=== PATIENT | female | born 1935 | race Caucasian/White ===

== ENCOUNTER 2019-02-08 15:51 | Inpatient (IN) ==
[2019-02-08 17:12] LABS: Basophils % 0.5 % (0.1-2.0); Eosinophils # 0.1 K/mm3 (0.0-0.4); Eosinophils % 1.4 % (0.1-12.0); Hematocrit 37.1 % (37.0-47.0); Hemoglobin 11.9 g/dL (12.2-16.2); Lymphocytes # 1.3 K/mm3 (0.7-4.5); Lymphocytes % 18.3 % (10-50); Mean Corpuscular HGB Conc 32.1 g/dL (31.8-35.4); Mean Corpuscular Hemoglobin 30.8 pg (27.0-31.2); Mean Corpuscular Volume 96.1 fl (81-99); Mean Platelet Volume 8.9 fl (7.4-10.4); Monocytes # 0.4 K/mm3 (0.1-1.0); Monocytes % 5.5 % (1.7-9.3); Neutrophils # 5.4 K/mm3 (1.8-7.8); Neutrophils % 74.3 % (37.0-80.0); Platelet Count 216 K/mm3 (142-424); Red Blood Count 3.86 M/mm3 (4.20-5.40); Red Cell Distribution Width 15.1 % (11.5-17.5); White Blood Count 7.3 K/mm3 (4.8-10.8)
--- NOTE | 2019-02-08 17:34 | Emergency Department Note ---
[facility] [place] Disposition Clinical Impression: Acute renal failure (ARF) Qualifiers: Acute renal failure type: unspecified Qualified Code(s): N17.9 - Acute kidney failure, unspecified Disposition: Still a Patient Condition on Discharge: Serious Referrals: Provider,Referral, [Primary Care Provider] - Time of Disposition: 18:45 Medical Decision Making - Jeramy Inquiry Pt receiving controlled substance: No Vital Signs: 02/08/19 16:14 Temperature 97.7 F Temperature Source Oral Pulse Rate [Right Brachial] 49 L Respiratory Rate 18 Blood Pressure [Right Arm] 115/51 L Blood Pressure Mean [Right Arm] 72 Blood Pressure Source [Right Arm] Automatic Cuff Blood Pressure Position [Right Arm] Sitting 02 Sat by Pulse Oximetry 94 L Oxygen Delivery Method Room Air - Lab Data Lab results reviewed: Yes: I reviewed the patient's lab results. Lab Results 02/08/19 16:14: Urine Color Yellow, Urine Appearance Cloudy, Urine pH 5.0, Ur Specific [place] 1.020, Urine Protein Negative, Urine Glucose (UA) Negative, Urine Ketones Trace, Urine Blood Negative, Urine Nitrate Negative, Urine Bilirubin 1+ A, Urine Urobilinogen 1, Ur Leukocyte Esterase 1+ A 02/08/19 16:55: WBC 7.3, RBC 3.86 L, Hgb 11.9 L, Hct 37.1, MCV 96.1, MCH 30.8, MCHC 32.1, RDW 15.1, Plt Count 216, MPV 8.9, Neut % (Auto) 74.3, Lymph % (Auto) 18.3, [place] % (Auto) 5.5, Eos % (Auto) 1.4, Baso % (Auto) 0.5, Neut # (Auto) 5.4, Lymph # (Auto) 1.3, [place] # (Auto) 0.4, Eos # (Auto) 0.1, Baso # (Auto) 0.0 02/08/19 16:55: Sodium 136, Potassium 3.8, Chloride 102, Carbon Dioxide 23, Anion Gap 14.8, BUN 49 H, Creatinine 3.11 H, Estimated Creat Clear 20, Estimated GFR 14 L*, Est GFR ( Amer) 17 L*, Glucose 102, Calcium 8.9, Total Bilirubin 0.6, AST 101 H, ALT 117 H, Alkaline Phosphatase 104, Total Protein 7.0, Albumin 3.4, Globulin 3.6 H, Albumin/Globulin Ratio 0.9 L, Amylase 50, Lipase 146 Result diagrams: 02/08/19 16:55 02/08/19 16:55 Orders (Tests/Meds): ED MEDICATIONS Generic Name Dose Route Start Last Admin Trade Name Freq PRN Reason Stop Dose Admin Sodium Chloride 1,000 mls @ 999 mls/hr 02/08/19 16:45 02/08/19 16:59 Sod Chlor 0.9% 1000ml Bag IV 02/08/19 17:45 999 mls/hr .Q1H1M DORA Administration Discontinued Medications Generic Name Dose Route Start Last Admin Trade Name Freq PRN Reason Stop Dose Admin Ondansetron HCl 4 mg 02/08/19 16:44 02/08/19 16:59 Zofran 4mg/2ml Vial IV 02/08/19 16:45 4 mg ONCE ONE Administration ORDERS Category Date Time Status Diarrhea 23 Panel, PCR Stat Lab 02/08/19 16:43 Ordered Medical Decision Narrative: Spoke with Navneet at [facility] in [place], [place]. Creatinine on Monday02/06/19 was 1.3 and eGFR was 48. Patient was transferred to ER after discussing with Dr Franks [facility] [place] HPI - General Stated complaint: Vomiting;weakness Time Seen by Provider: 02/08/19 16:30 Mode of Arrival: Family Vehicle Source of Information: Patient Limitations: No Limitations Description of Symptoms (Recalled from Triage Doc. by RN): C/O VOMITING AND DIARRHEA SINCE 1AM MONDAY AND WEAKNESS. UNABLE TO EAT HEENT Symptoms (Recalled from RN notes): No Resp Symptoms (Recalled from RN notes): No Skin Symptoms (Recalled from RN notes): No MS Symptoms (Recalled from RN notes): No Functional Status (Recalled from RN notes): N/A - History of Present Illness Provider Complaint: Patient is visiting daughter from out of town. States she ate sausage for dinner on 02/04/19. Woke up in the middle of the night with vomiting, diarrhea and stomach cramps. Took some Imodium. The next day she was evaluated at the hospital in [place]. Had labs, a CT and an EKG. She also got IV fluids. Was told these were all okay and was sent home. [place] mostly okay yesterday, and traveled to her daughter's house here. Didn't eat anything yesterday and had no vomiting or diarrhea. Ate toast this am, has had nausea, vomiting and diarrhea again. Has history of CHF. History of left breast cancer. History stage III renal failure. History of AMI X 2. History of HTN. States she has chronic bradycardia, and heart rate of 49 today is normal for her. Onset (ago): day(s) (4) Location: abdomen Relieving factors: none Exacerbating factors: none Associated symptoms: nausea/vomiting Treatments prior to arrival: other (Imodium) - Related Data Home Medications Medication Instructions Recorded Confirmed Allopurinol [Allopurinol 100mg 100 mg PO DAILY 02/08/19 02/08/19 tablet] Aspirin [Aspir 81] 81 mg PO DAILY 02/08/19 02/08/19 Calcium Carbonate/Vitamin D3 1 each PO DAILY 02/08/19 02/08/19 [Os-Magno 500-Vit D3 600 Caplet] Carvedilol [Carvedilol 3.125mg Tab] 3.125 mg PO BID 02/08/19 02/08/19 Furosemide [Furosemide 40MG tAB] 20 mg PO DAILY 02/08/19 02/08/19 Losartan Potassium 50 mg PO DAILY 02/08/19 02/08/19 Mv-Min/FA/Vit K/Lycop/Lut/Zeax 1 each PO DAILY 02/08/19 02/08/19 [Ocuvite Eye + Multi Tablet] Simvastatin 40 mg PO DAILY 02/08/19 02/08/19 Tamoxifen Citrate 20 mg PO DAILY 02/08/19 02/08/19 Allergies Allergy/AdvReac Type Severity Reaction Status Date / Time No Known Allergies Allergy Verified 02/08/19 16:19 - Worker's Comp Is this a Worker's Comp case?: No [facility] History - Hepatitis A Screen Drug use history?: No High risk sexual behaviors?: No History of sexually transmitted infection?: No Currently employed?: No Childcare worker?: No Do you have indoor plumbing?: Yes Do you have electricity?: Yes Attestation statement:: This patient has been screened for Hepatitis A risk factors. I have reviewed the patient's past medical history: Yes Medical History: Reports:: Cancer (LEFT BREAST), Congestive Heart Failure, Coronary Artery Disease, Renal Insufficiency - Social History Alcohol Intake: never Occupational Status: retired - Psychiatric History Expresses thoughts of harming self/others: None Suicide Plan Description: No Plan ROS Obtained: Yes All systems reviewed & no additional complaints - Constitutional Constitutional: Denies body ache, Denies chills, Denies fever(s) - Gastrointestinal Gastrointestingal: Reports: diarrhea, nausea, vomiting Physical Exam - General General appearance: alert, in no apparent distress - Head Head exam: atraumatic, normocephalic, normal inspection - Eye Eye exam: Present: normal appearance, PERRL, EOMI - ENT ENT exam: Present: normal exam, normal oropharynx, mucous membranes moist, TM's normal bilaterally, normal external ear exam - Neck Neck exam: Present: normal inspection, full ROM, trachea midline. Absent: meningismus, lymphadenopathy - Chest Chest inspection: Present: normal inspection, symmetric chest wall rise. Absent: tenderness - Respiratory Respiratory exam: Present: normal lung sounds bilaterally. Absent: respiratory distress - Cardiovascular Cardiovascular exam: Present: regular rate, normal rhythm, bradycardia (patient states this rate is normal for her). Absent: JVD - Abdominal Exam Abdominal exam: Present: soft, normal bowel sounds. Absent: distention, tenderness, guarding - Extremities Exam Extremities exam: Present: normal inspection, full ROM, normal capillary refill. Absent: calf tenderness - Back Exam Back exam: Present: normal inspection. Absent: tenderness - Neurological Exam Neurological exam: Present: alert, oriented X3 - Psychiatric Psychiatric exam: Present: normal affect, normal mood - Skin Skin exam: Present: warm, dry, intact, normal color - Lymphatic Lymphatic Findings: no adenopathy
[2019-02-08 17:41] LABS: Albumin Level 3.4 gm/dL (3.4-5.0); Albumin/Globulin Ratio 0.9 (1.1-1.8); Anion Gap 14.8 mEq/L (5-15); Bilirubin,Total 0.6 mg/dL (0.2-1.0); Calcium 8.9 mg/dL (8.5-10.1); Globulin 3.6 gm/dl (1.3-3.2); Potassium 3.8 mmoL/L (3.5-5.1)
--- NOTE | 2019-02-08 19:24 | Emergency Department Note ---
ED Disposition Clinical Impression: Dehydration Acute renal failure (ARF) Qualifiers: Acute renal failure type: unspecified Qualified Code(s): N17.9 - Acute kidney failure, unspecified Diarrhea Qualifiers: Diarrhea type: unspecified type Qualified Code(s): R19.7 - Diarrhea, unspecified Disposition: Admitted as Observation Condition on Discharge: [facility] Critical [facility] Critical Care Time: No Attestation: On 02/08/19, the high probability of a clinically significant, sudden or life threatening deterioration of the following system(s) required my full and direct attention, intervention and personal management. The time I documented below is in addition to time spent performing reported procedures but includes the following listed in this critical care notation. Medical Decision Making - Jeramy Inquiry Pt receiving controlled substance: No Vital Signs: 02/08/19 16:14 02/08/19 19:03 02/08/19 19:07 Temperature 97.7 F 97.5 F L Temperature Source Oral Oral Pulse Rate [Right Brachial] 49 L 50 L 50 L Respiratory Rate 18 18 Blood Pressure [Right Arm] 115/51 L 148/69 H 148/69 H Blood Pressure Mean [Right Arm] 72 95 95 Blood Pressure Source [Right Arm] Automatic Cuff Automatic Cuff Blood Pressure Position [Right Arm] Sitting Supine 02 Sat by Pulse Oximetry 94 L 96 98 Oxygen Delivery Method Room Air Room Air 02/08/19 20:25 Temperature Temperature Source Pulse Rate [Right Brachial] 50 L Respiratory Rate 16 Blood Pressure [Right Arm] 132/52 L Blood Pressure Mean [Right Arm] 78 Blood Pressure Source [Right Arm] Automatic Cuff Blood Pressure Position [Right Arm] Sitting 02 Sat by Pulse Oximetry 97 Oxygen Delivery Method Room Air - Lab Data Lab Results 02/08/19 16:14: Urine Color Yellow, Urine Appearance Cloudy, Urine pH 5.0, Ur Specific [place] 1.020, Urine Protein Negative, Urine Glucose (UA) Negative, Urine Ketones Trace, Urine Blood Negative, Urine Nitrate Negative, Urine Bilirubin 1+ A, Urine Urobilinogen 1, Ur Leukocyte Esterase 1+ A 02/08/19 16:55: WBC 7.3, RBC 3.86 L, Hgb 11.9 L, Hct 37.1, MCV 96.1, MCH 30.8, MCHC 32.1, RDW 15.1, Plt Count 216, MPV 8.9, Neut % (Auto) 74.3, Lymph % (Auto) 18.3, [place] % (Auto) 5.5, Eos % (Auto) 1.4, Baso % (Auto) 0.5, Neut # (Auto) 5.4, Lymph # (Auto) 1.3, [place] # (Auto) 0.4, Eos # (Auto) 0.1, Baso # (Auto) 0.0 02/08/19 16:55: Sodium 136, Potassium 3.8, Chloride 102, Carbon Dioxide 23, Anion Gap 14.8, BUN 49 H, Creatinine 3.11 H, Estimated Creat Clear 20, Estimated GFR 14 L*, Est GFR ( Amer) 17 L*, Glucose 102, Calcium 8.9, Total Bilirubin 0.6, AST 101 H, ALT 117 H, Alkaline Phosphatase 104, Total Protein 7.0, Albumin 3.4, Globulin 3.6 H, Albumin/Globulin Ratio 0.9 L, Amylase 50, L ipase 146 02/08/19 19:53: Urine Color Yellow, Urine Appearance Clear, Urine pH 5.5, Ur Specific [place] <= 1.005, Urine Protein Negative, Urine Glucose (UA) Negative, Urine Ketones Negative, Urine Blood Negative, Urine Nitrate Negative, Urine Bilirubin Negative, Urine Urobilinogen 0.2, Ur Leukocyte Esterase Trace Result diagrams: 02/08/19 16:55 02/08/19 16:55 Orders (Tests/Meds): ED MEDICATIONS Generic Name Dose Route Start Last Admin Trade Name Freq PRN Reason Stop Dose Admin Sodium Chloride 1,000 mls @ 999 mls/hr 02/08/19 16:45 02/08/19 16:59 Sod Chlor 0.9% 1000ml Bag IV 02/08/19 17:45 999 mls/hr .Q1H1M DORA Administration Discontinued Medications Generic Name Dose Route Start Last Admin Trade Name Freq PRN Reason Stop Dose Admin Ondansetron HCl 4 mg 02/08/19 16:44 02/08/19 16:59 Zofran 4mg/2ml Vial IV 02/08/19 16:45 4 mg ONCE ONE Administration ORDERS Category Date Time Status Diarrhea 23 Panel, PCR Stat Lab 02/08/19 16:43 Ordered Hepatitis Panel (4) Routine Lab 02/08/19 16:55 Received Urinalysis and Microscopic Stat Lab 04/19/19 19:53 Results Urine Culture Stat Micro 04/19/19 19:53 Received - Physician Consults Physician Consulted: Pankaj - present Time: 20:11 Reason -: Admission Comment/Response: Agrees to admit the patient to the hospital. We discussed the patient's clinical information, including history, exam, laboratory and radiology results and ED course. Per hospital procedure, I will write temporary bridge inpatient orders on the patient. Specific orders requested by the admitting physician: Gentle hydration General Adult HPI - General Chief complaint: Nausea/Vomiting/Diarrhea Stated complaint: Vomiting;weakness Time Seen by Provider: 02/08/19 19:24 Mode of Arrival: Ambulatory Limitations: No Limitations Description of Symptoms (Recalled from ER Triage Doc. by RN): Pt states she has had N/V/D starting on monday, seen at her hospt in [place] on monday with decreased renal function given fluids and sent home, here today with same - History of Present Illness HPI narrative: Woke up on Monday morning at her home in [facility] and developed profuse vomiting and diarrhea which persisted for 12 hours. She went to the hospital there and got IV fluids. She says testing was unremarkable. She was sent home and felt better so she came here to visit her daughter. However, diarrhea returned this morning and she has had diarrhea all day. Stomach is growling, but no abdominal pain. No vomiting today. She had fever when the first illness first started, but not since. She was seen in the urgent treatment center and given IV fluids. Lab work showed a creatinine of 3. Records were obtained from [place] and her creatinine was found to be 1.3 at that time, so she was sent to the emergency department for admission for continued hydration. She has not been able to give a stool sample thus far in the emergency department. She does have a prior history of renal insufficiency. Onset (ago): day(s) (4) Location: abdomen Relieving factors: none Exacerbating factors: none Associated symptoms: nausea/vomiting Treatments prior to arrival: other (Imodium) - Related Data Home Medications Medication Instructions Recorded Confirmed Allopurinol [Allopurinol 100mg 100 mg PO DAILY 02/08/19 02/08/19 tablet] Aspirin [Aspir 81] 81 mg PO DAILY 02/08/19 02/08/19 Calcium Carbonate/Vitamin D3 1 each PO DAILY 02/08/19 02/08/19 [Os-Magno 500-Vit D3 600 Caplet] Carvedilol [Carvedilol 3.125mg Tab] 3.125 mg PO BID 02/08/19 02/08/19 Furosemide [Furosemide 40MG tAB] 20 mg PO DAILY 02/08/19 02/08/19 Losartan Potassium 50 mg PO DAILY 02/08/19 02/08/19 Mv-Min/FA/Vit K/Lycop/Lut/Zeax 1 each PO DAILY 02/08/19 02/08/19 [Ocuvite Eye + Multi Tablet] Simvastatin 40 mg PO DAILY 02/08/19 02/08/19 Tamoxifen Citrate 20 mg PO DAILY 02/08/19 02/08/19 Allergies Allergy/AdvReac Type Severity Reaction Status Date / Time No Known Allergies Allergy Verified 02/08/19 16:19 [facility] History - Hepatitis A Screen Drug use history?: No High risk sexual behaviors?: No History of sexually transmitted infection?: No Currently employed?: No Childcare worker?: No Do you have indoor plumbing?: Yes Do you have electricity?: Yes Attestation statement:: This patient has been screened for Hepatitis A risk factors. I have reviewed the patient's past medical history: Yes Medical History: Reports:: Cancer (LEFT BREAST), Congestive Heart Failure, Coronary Artery Disease, Renal Insufficiency - Social History Alcohol Intake: never Occupational Status: retired - Psychiatric History Expresses thoughts of harming self/others: None Suicide Plan Description: No Plan ROS Obtained: Yes All systems reviewed & no additional complaints - Constitutional Constitutional: Reports fever(s) - Gastrointestinal Gastrointestingal: Reports: diarrhea, nausea, vomiting. Denies: abdominal pain Physical Exam - General General appearance: alert, in no apparent distress Comment: Eating pretzels and drinking soda - Head Head exam: atraumatic, normocephalic - Eye Eye exam: Present: normal appearance, EOMI - ENT ENT exam: Present: mucous membranes dry - Neck Neck exam: Present: normal inspection, trachea midline - Chest Chest inspection: Present: normal inspection, symmetric chest wall rise - Respiratory Respiratory exam: Present: normal lung sounds bilaterally. Absent: respiratory distress - Cardiovascular Cardiovascular exam: Present: regular rate, normal rhythm - Abdominal Exam Abdominal exam: Present: soft, hyperactive bowel sounds. Absent: distention, tenderness, guarding, rebound, rigidity - Extremities Exam Extremities exam: Present: normal inspection, full ROM - Neurological Exam Neurological exam: Present: alert, oriented X3 - Psychiatric Psychiatric exam: Present: normal affect, normal mood - Skin Skin exam: Present: warm, dry
[2019-02-08 20:08] LABS: Microscopic, Urine URINE MICROSCOPIC (MICROSCOPIC)
[2019-02-08 20:26] LABS: Appearance,Urine CLEAR (Clear); Bilirubin,Urine Negative (Negative); Blood, Urine Negative (Negative); Color,Urine YELLOW (Yellow); Glucose,Urine (UA) Negative (Negative); Ketones,Urine Negative (Negative); Leukocyte Esterase,Urine TRACE (Negative); PH,Urine 5.5 (5.0-8.5); Protein,Urine Negative (Negative); Specific Gravity, Urine <= 1.005 (1.005-1.030); Urobilinogen,Urine 0.2 EU/dl (0.2)
[2019-02-08 20:42] LABS: Amorphous Sediment,Urine 1+ /lpf; Bacteria,Urine 1+ /lpf; Squamous Epithelial Cell,Urine Occasional #/hpf (0-5); WBC,Urine Occasional #/hpf (0-3)
--- NOTE | 2019-02-08 21:44 | History & Physical Report ---
*Admission Date: 02/08/19 *Chief complaint: weakness *History of present illness: this wf with weakness and vomiting and diarrhea presented and was seen in [facility] - izzy is visiting daughter from out of town. States she ate sausage for dinner on 02/04/19. Woke up in the middle of the night with vomiting, diarrhea and stomach cramps. Took some Imodium. The next day she was evaluated at the hospital in [place]. Had labs, a CT and an EKG. She also got IV fluids. Was told these were all okay and was sent home. [place] mostly okay yesterday, and traveled to her daughter's house here. Didn't eat anything yesterday and had no vomiting or diarrhea. Ate toast this am, has had nausea, vomiting and diarrhea again. Has history of CHF. History of left breast cancer. History stage III renal failure. History of AMI X 2. History of HTN. States she has chronic bradycardia, and heart rate of 49 today is normal for her. records reviewed from ed visit in [place]-pt was sent to [facility] ed [facility]-izzy is visiting daughter from out of town. States she ate sausage for dinner on 01/21 03/10. Woke up in the middle of the night with vomiting, diarrhea and stomach cramps. Took some Imodium. The next day she was evaluated at the hospital in [place]. Had labs, a CT and an EKG. She also got IV fluids. Was told these were all okay and was sent home. [place] mostly okay yesterday, and traveled to her daughter's house here. Didn't eat anything yesterday and had no vomiting or diarrhea. Ate toast this am, has had nausea, vomiting and diarrhea again. Has history of CHF. History of left breast cancer. History stage III renal failure. History of AMI X 2. History of HTN. pt was admitted for ivf at this time sec to decreased renal function and ongoing gi issues [facility] History I have reviewed the patient's past medical history: Yes Medical History: Reports:: Cancer (LEFT BREAST), Congestive Heart Failure, Coronary Artery Disease, Renal Insufficiency - *Social History Alcohol Intake: never *Occupational Status:: retired *Travel in the last 8 weeks: None - Psychiatric History Expresses thoughts of harming self/others: None Suicide Plan Description: No Plan Family Hx:: Non-contributory Review of Systems - Review of Systems Review of systems:: pertinent systems reviewed and negative unless documented below - Constitutional Reports fatigue, Reports malaise, Reports weakness, Denies fever(s) - Eyes Denies change in vision - ENT Denies sore throat - *Cardiovascular Denies chest pain - *Respiratory Denies cough - *Gastrointestinal Reports loose stools, Reports vomiting, Denies abdominal pain, Denies black, tarry stools - *Genitourinary Denies blood in urine - *Musculoskeletal Denies joint pain, Denies joint swelling - Integumentary/Breasts Denies rash - *Neurologic Denies seizure-like activity - Psychiatric Denies anxiety Meds Home Medications Medication Instructions Recorded Confirmed Type Allopurinol [Allopurinol 100mg 100 mg PO DAILY 02/08/19 02/08/19 History tablet] Aspirin [Aspir 81] 81 mg PO DAILY 02/08/19 02/08/19 History Carvedilol [Carvedilol 3.125mg Tab] 3.125 mg PO BID 02/08/19 02/08/19 History Furosemide [Furosemide 40MG tAB] 20 mg PO DAILY 02/08/19 02/08/19 History Losartan Potassium 50 mg PO DAILY 02/08/19 02/08/19 History Potassium 99 mg PO DAILY 02/08/19 02/08/19 History Simvastatin 40 mg PO DAILY 02/08/19 02/08/19 History Tamoxifen Citrate 20 mg PO DAILY 02/08/19 02/08/19 History Allergies Allergy/AdvReac Type Severity Reaction Status Date / Time No Known Allergies Allergy Verified 02/08/19 16:19 Exam Vital signs and Labs for Last 24 Hours: Temp Pulse Resp BP Pulse Ox 97.5 F L 50 L 16 113/47 L 97 02/08/19 20:35 02/08/19 20:35 02/08/19 20:35 02/08/19 20:35 02/08/19 20:25 Laboratory Results - last 24 hr 02/08/19 16:14: Urine Color Yellow, Urine Appearance Cloudy, Urine pH 5.0, Ur Specific [place] 1.020, Urine Protein Negative, Urine Glucose (UA) Negative, Urine Ketones Trace, Urine Blood Negative, Urine Nitrate Negative, Urine Bilirubin 1+ A, Urine Urobilinogen 1, Ur Leukocyte Esterase 1+ A 02/08/19 16:55: WBC 7.3, RBC 3.86 L, Hgb 11.9 L, Hct 37.1, MCV 96.1, MCH 30.8, MCHC 32.1, RDW 15.1, Plt Count 216, MPV 8.9, Neut % (Auto) 74.3, Lymph % (Auto) 18.3, [place] % (Auto) 5.5, Eos % (Auto) 1.4, Baso % (Auto) 0.5, Neut # (Auto) 5.4, Lymph # (Auto) 1.3, [place] # (Auto) 0.4, Eos # (Auto) 0.1, Baso # (Auto) 0.0 02/08/19 16:55: Sodium 136, Potassium 3.8, Chloride 102, Carbon Dioxide 23, Anion Gap 14.8, BUN 49 H, Creatinine 3.11 H, Estimated Creat Clear 20, Estimated GFR 14 L*, Est GFR ( Amer) 17 L*, Glucose 102, Calcium 8.9, Total Bilirubin 0.6, AST 101 H, ALT 117 H, Alkaline Phosphatase 104, Total Protein 7.0, Albumin 3.4, Globulin 3.6 H, Albumin/Globulin Ratio 0.9 L, Amylase 50, Lipase 146 02/08/19 19:53: Urine Color Yellow, Urine Appearance Clear, Urine pH 5.5, Ur Specific [place] <= 1.005, Urine Protein Negative, Urine Glucose (UA) Negative, Urine Ketones Negative, Urine Blood Negative, Urine Nitrate Negative, Urine Bilirubin Negative, Urine Urobilinogen 0.2, Ur Leukocyte Esterase Trace, Urine WBC Occasional, Ur Squamous Epith Cells Occasional, Amorphous Sediment 1+, Urine Bacteria 1+ I & O for Last 24 hours: Intake & Output 02/06/19 02/07/19 02/08/19 02/09/19 11:59 11:59 11:59 11:59 Intake Total 900 / 900 Balance 900 / 900 Weight 210 lb - Constitutional no acute distress, obese, cooperative - *Routine HEENT Exam Head: Present: normocephalic Eye: Present: EOMI, PERRL. Absent: conjunctival icterus ENT: Present: mucous membranes dry - *Routine Neck Exam Present: supple - *Routine Respiratory Exam Present: distant breath sounds. Absent: CTA bilaterally - *Routine Cardiovascular Exam Present: RRR, murmur - *Routine Abdominal Exam Present: soft - *Routine Extremities Exam Absent: Vandana's sign - *Routine Skin Exam Present: intact - *Routine Neurological Exam Present: alert, oriented X3, CN II-XII intact - Routine Psychiatric Exam Present: normal affect Assessment and Plan (1) Acute renal failure (ARF) Current visit: Yes Status: Acute Qualifiers: Acute renal failure type: unspecified Qualified Code(s): N17.9 - Acute kidney failure, unspecified Category: Medical Code(s): N17.9 - Acute kidney failure, unspecified (2) Diarrhea Current visit: Yes Status: Acute Qualifiers: Diarrhea type: unspecified type Qualified Code(s): R19.7 - Diarrhea, unspecified Category: Medical Code(s): R19.7 - Diarrhea, unspecified (3) Breast cancer Current visit: Yes Status: Chronic Qualifiers: Breast location: unspecified site of breast Estrogen receptor status: unspecified Patient sex: female Laterality: left Qualified Code(s): C50.912 - Malignant neoplasm of unspecified site of left female breast Category: Medical Code(s): C50.919 - Malignant neoplasm of unspecified site of unspecified female breast (4) Obesity Current visit: Yes Status: Acute Qualifiers: Obesity type: due to excess calories Obesity classification: adult class 3 (BMI >= 40) Serious obesity comorbidity presence: with serious comorbidity Body mass index: BMI 40.0-44.9 Qualified Code(s): E66.01 - Morbid (severe) obesity due to excess calories; Z68.41 - Body mass index (BMI) 40.0-44.9, adult Category: Medical Code(s): E66.9 - Obesity, unspecified (5) CAD (coronary artery disease) Current visit: Yes Status: Acute Qualifiers: Coronary Disease-Associated Artery/Lesion type: unspecified vessel or lesion type [place] vs. transplanted heart: [place] heart Associated angina: angina presence unspecified Qualified Code(s): I25.10 - Atherosclerotic heart disease of [place] coronary artery without angina pectoris Category: Medical Code(s): I25.10 - Atherosclerotic heart disease of [place] coronary artery without angina pectoris (6) CHF (congestive heart failure) Current visit: Yes Status: Acute Qualifiers: Heart failure type: unspecified Heart failure chronicity: chronic Qualified Code(s): I50.9 - Heart failure, unspecified Category: Medical Code(s): I50.9 - Heart failure, unspecified (7) CHF, chronic Current visit: Yes Status: Acute Category: Medical Code(s): I50.9 - Heart failure, unspecified (8) Gout Current visit: Yes Status: Acute Qualifiers: Gout site: unspecified site Gout etiology: unspecified cause Chronicity: chronic Presence of tophus: without tophus Qualified Code(s): M1A.9XX0 - Chronic gout, unspecified, without tophus (tophi) Category: Medical Code(s): M10.9 - Gout, unspecified
[2019-02-09 06:51] LABS: Anion Gap 13.6 mEq/L (5-15); Calcium 8.1 mg/dL (8.5-10.1); Potassium 3.6 mmoL/L (3.5-5.1)
--- NOTE | 2019-02-09 09:09 | Progress Note ---
Internal Medicine - PN: Subj *Date: 02/09/19 *Time: 09:07 Interval history: doing better Exam Vital signs and Labs for Last 24 Hours: Temp Pulse Resp BP Pulse Ox 97.6 F 53 L 18 113/53 L 97 02/09/19 07:32 02/09/19 07:32 02/09/19 07:32 02/09/19 07:32 02/09/19 08:00 Laboratory Results - last 24 hr 02/08/19 16:14: Urine Color Yellow, Urine Appearance Cloudy, Urine pH 5.0, Ur Specific [place] 1.020, Urine Protein Negative, Urine Glucose (UA) Negative, Urine Ketones Trace, Urine Blood Negative, Urine Nitrate Negative, Urine Bilirubin 1+ A, Urine Urobilinogen 1, Ur Leukocyte Esterase 1+ A 02/08/19 16:55: WBC 7.3, RBC 3.86 L, Hgb 11.9 L, Hct 37.1, MCV 96.1, MCH 30.8, MCHC 32.1, RDW 15.1, Plt Count 216, MPV 8.9, Neut % (Auto) 74.3, Lymph % (Auto) 18.3, [place] % (Auto) 5.5, Eos % (Auto) 1.4, Baso % (Auto) 0.5, Neut # (Auto) 5.4, Lymph # (Auto) 1.3, [place] # (Auto) 0.4, Eos # (Auto) 0.1, Baso # (Auto) 0.0 02/08/19 16:55: Sodium 136, Potassium 3.8, Chloride 102, Carbon Dioxide 23, Anion Gap 14.8, BUN 49 H, Creatinine 3.11 H, Estimated Creat Clear 20, Estimated GFR 14 L*, Est GFR ( Amer) 17 L*, Glucose 102, Calcium 8.9, Total Bilirubin 0.6, AST 101 H, ALT 117 H, Alkaline Phosphatase 104, Total Protein 7.0, Albumin 3.4, Globulin 3.6 H, Albumin/Globulin Ratio 0.9 L, Amylase 50, Lipase 146 02/08/19 19:53: Urine Color Yellow, Urine Appearance Clear, Urine pH 5.5, Ur Specific [place] <= 1.005, Urine Protein Negative, Urine Glucose (UA) Negative, Urine Ketones Negative, Urine Blood Negative, Urine Nitrate Negative, Urine Bilirubin Negative, Urine Urobilinogen 0.2, Ur Leukocyte Esterase Trace, Urine WBC Occasional, Ur Squamous Epith Cells Occasional, Amorphous Sediment 1+, Urine Bacteria 1+ 02/09/19 06:20: Sodium 141, Potassium 3.6, Chloride 108 H, Carbon Dioxide 23, Anion Gap 13.6, BUN 47 H, Creatinine 2.73 H, Estimated Creat Clear 26, Estimated GFR 17 L*, Est GFR ( Amer) 20 L, Glucose 84, Calcium 8.1 L I & O for Last 24 hours: Intake & Output 02/06/19 02/07/19 02/08/19 02/09/19 11:59 11:59 11:59 11:59 Intake Total 1500 / 1500 Output Total 450 / 450 Balance 1050 / 1050 Weight 241 lb 3.006 oz Microbiology Reports for the Last 24 Hours: Microbiology 02/08/19 19:53 Urine,Clean Catch Urine Culture - Preliminary - Constitutional no acute distress, obese - *Routine HEENT Exam Head: Present: normocephalic Eye: Present: EOMI, PERRL ENT: Present: mucous membranes dry - *Routine Neck Exam Absent: JVD - *Routine Respiratory Exam Present: CTA bilaterally - *Routine Cardiovascular Exam Present: RRR. Absent: murmur - *Routine Abdominal Exam Present: soft. Absent: tenderness - *Routine Extremities Exam Absent: Vandana's sign - *Routine Skin Exam Present: intact - *Routine Neurological Exam Present: alert, oriented X3, CN II-XII intact - Routine Psychiatric Exam Present: normal affect Assessment and Plan (1) Acute renal failure (ARF) Current visit: Yes Status: Acute Qualifiers: Acute renal failure type: unspecified Qualified Code(s): N17.9 - Acute kidney failure, unspecified Category: Medical Code(s): N17.9 - Acute kidney failure, unspecified (2) Diarrhea Current visit: Yes Status: Acute Qualifiers: Diarrhea type: unspecified type Qualified Code(s): R19.7 - Diarrhea, unspecified Category: Medical Code(s): R19.7 - Diarrhea, unspecified (3) Breast cancer Current visit: Yes Status: Chronic Qualifiers: Breast location: unspecified site of breast Estrogen receptor status: unspecified Patient sex: female Laterality: left Qualified Code(s): C50.912 - Malignant neoplasm of unspecified site of left female breast Category: Medical Code(s): C50.919 - Malignant neoplasm of unspecified site of unspecified female breast (4) Obesity Current visit: Yes Status: Acute Qualifiers: Obesity type: due to excess calories Obesity classification: adult class 3 (BMI >= 40) Serious obesity comorbidity presence: with serious comorbidity Body mass index: BMI 40.0-44.9 Qualified Code(s): E66.01 - Morbid (severe) obesity due to excess calories; Z68.41 - Body mass index (BMI) 40.0-44.9, adult Category: Medical Code(s): E66.9 - Obesity, unspecified (5) CAD (coronary artery disease) Current visit: Yes Status: Acute Qualifiers: Coronary Disease-Associated Artery/Lesion type: unspecified vessel or lesion type [place] vs. transplanted heart: [place] heart Associated angina: angina presence unspecified Qualified Code(s): I25.10 - Atherosclerotic heart disease of [place] coronary artery without angina pectoris Category: Medical Code(s): I25.10 - Atherosclerotic heart disease of [place] coronary artery without angina pectoris (6) CHF (congestive heart failure) Current visit: Yes Status: Acute Qualifiers: Heart failure type: unspecified Heart failure chronicity: chronic Qualified Code(s): I50.9 - Heart failure, unspecified Category: Medical Code(s): I50.9 - Heart failure, unspecified (7) CHF, chronic Current visit: Yes Status: Acute Category: Medical Code(s): I50.9 - Heart failure, unspecified (8) Gout Current visit: Yes Status: Acute Qualifiers: Gout site: unspecified site Gout etiology: unspecified cause Chronicity: chronic Presence of tophus: without tophus Qualified Code(s): M1A.9XX0 - Chronic gout, unspecified, without tophus (tophi) Category: Medical Code(s): M10.9 - Gout, unspecified
--- NOTE | 2019-02-09 13:44 | Pharmacy Consult Notes ---
[facility] Pharmacy VTE Monitoring - Patient Demographics Admission date: 02/08/19 Report Date: 02/09/19 Time: 13:44 Allergies/Adverse Reactions: Patient Allergies No Known Allergies Allergy (Verified 02/08/19 16:19) Height: 1.65 m Weight: 109.401 kg Patient Problems: Current Active Problems (Updated 02/09/19 @ 09:07 by Riley Lira MD) Acute renal failure (ARF) (Acute) Diarrhea (Acute) Dehydration (Acute) Breast cancer (Chronic) Obesity (Acute) CAD (coronary artery disease) (Acute) CHF (congestive heart failure) (Acute) CHF, chronic (Acute) Gout (Acute) - VTE Risk Labs: VTE Related Lab Results Hgb 11.9 g/dL (12.2-16.2) L 02/08/19 16:55 Hct 37.1 % (37.0-47.0) 02/08/19 16:55 Plt Count 216 K/mm3 (142-424) 02/08/19 16:55 BUN 47 mg/dL (7-18) H 02/09/19 06:20 Creatinine 2.73 mg/dL (0.55-1.02) H 02/09/19 06:20 Estimated Creat Clear 26 mL/min (50-200) 02/09/19 06:20 VTE Score: 9 VTE Risk Level: Moderate Risk - Prophylaxis VTE Prophylaxis Ordered?: Yes Types of VTE Prophylaxis: TEDS Knee High Location of Applied Device: Bilateral Lower Extremeties
[2019-02-09 21:00] LABS: Anion Gap 14.2 mEq/L (5-15); Calcium 8.3 mg/dL (8.5-10.1); Potassium 4.2 mmoL/L (3.5-5.1)
[2019-02-10 08:40] LABS: Basophils % 0.6 % (0.1-2.0); Eosinophils # 0.2 K/mm3 (0.0-0.4); Eosinophils % 2.7 % (0.1-12.0); Hematocrit 31.9 % (37.0-47.0); Hemoglobin 10.4 g/dL (12.2-16.2); Lymphocytes # 1.3 K/mm3 (0.7-4.5); Lymphocytes % 20.3 % (10-50); Mean Corpuscular HGB Conc 32.5 g/dL (31.8-35.4); Mean Corpuscular Hemoglobin 31.5 pg (27.0-31.2); Mean Platelet Volume 9.8 fl (7.4-10.4); Monocytes # 0.3 K/mm3 (0.1-1.0); Neutrophils # 4.7 K/mm3 (1.8-7.8); Neutrophils % 72.4 % (37.0-80.0); Platelet Count 182 K/mm3 (142-424); Red Blood Count 3.29 M/mm3 (4.20-5.40); Red Cell Distribution Width 15.2 % (11.5-17.5); White Blood Count 6.4 K/mm3 (4.8-10.8)
[2019-02-10 08:45] LABS: Anion Gap 14.7 mEq/L (5-15); Calcium 8.1 mg/dL (8.5-10.1); Potassium 3.7 mmoL/L (3.5-5.1)
--- NOTE | 2019-02-10 09:06 | Discharge Summary ---
General - General Admission date:: 02/09/19 Discharge date: 02/10/19 HPI HPI: this wf with weakness and vomiting and diarrhea presented and was seen in [facility] - izzy is visiting daughter from out of town. States she ate sausage for dinner on 02/04/19. Woke up in the middle of the night with vomiting, diarrhea and stomach cramps. Took some Imodium. The next day she was evaluated at the hospital in [place]. Had labs, a CT and an EKG. She also got IV fluids. Was told these were all okay and was sent home. [place] mostly okay yesterday, and traveled to her daughter's house here. Didn't eat anything yesterday and had no vomiting or diarrhea. Ate toast this am, has had nausea, vomiting and diarrhea again. Has history of CHF. History of left breast cancer. History stage III renal failure. History of AMI X 2. History of HTN. States she has chronic bradycardia, and heart rate of 49 today is normal for her. records reviewed from ed visit in [place]-pt was sent to [facility] ed for [facility]-izzy is visiting daughter from out of town. States she ate sausage for dinner on 02/04/19. Woke up in the middle of the night with vomiting, diarrhea and stomach cramps. Took some Imodium. The next day she was evaluated at the hospital in [place]. Had labs, a CT and an EKG. She also got IV fluids. Was told these were all okay and was sent home. [place] mostly okay yesterday, and traveled to her daughter's house here. Didn't eat anything yesterday and had no vomiting or diarrhea. Ate toast this am, has had nausea, vomiting and diarrhea again. Has history of CHF. History of left breast cancer. History stage III renal failure. History of AMI X 2. History of HTN. pt was admitted for ivf at this time sec to decreased renal function and ongoing gi issues Hospital Course Hospital Course: pt has slowly improved during hospital stay with ivf and has donna diet - pt was discovered to have uti - gram neg and will be placed on 1x iv dose and d/c on omnicef- discussed labs with pt who plans on returning home and will consult with her pcp on monday - Objective Vital signs: Temp Pulse Resp BP Pulse Ox 97.8 F 56 L 18 146/59 H 97 02/10/19 07:59 02/10/19 07:59 02/10/19 07:59 02/10/19 07:59 02/10/19 07:59 no acute distress, obese - *Routine HEENT Exam Head: Present: normocephalic Eye: Present: EOMI, PERRL ENT: Present: mucous membranes dry - *Routine Neck Exam Present: supple. Absent: JVD - *Routine Respiratory Exam Present: CTA bilaterally - *Routine Cardiovascular Exam Present: RRR, murmur - *Routine Abdominal Exam Present: soft - *Routine Extremities Exam Absent: calf tenderness - Routine Back/Spine/Pelvis Exam Back/Spine: Absent: CVA tenderness - *Routine Skin Exam Present: intact - *Routine Neurological Exam Present: alert, oriented X3, CN II-XII intact - Routine Psychiatric Exam Present: normal affect Results Labs on day of discharge: Labs from last 24 hours 02/10/19 02/10/19 02/09/19 08:31 08:31 20:45 WBC 6.4 RBC 3.29 L Hgb 10.4 L Hct 31.9 L MCV 97.0 MCH 31.5 H MCHC 32.5 RDW 15.2 Plt Count 182 MPV 9.8 Neut % (Auto) 72.4 Lymph % (Auto) 20.3 [place] % (Auto) 4.0 Eos % (Auto) 2.7 Baso % (Auto) 0.6 Neut # (Auto) 4.7 Lymph # (Auto) 1.3 [place] # (Auto) 0.3 Eos # (Auto) 0.2 Baso # (Auto) 0.0 Sodium 140 140 Potassium 3.7 4.2 Chloride 109 H 108 H Carbon Dioxide 20 L 22 Anion Gap 14.7 14.2 BUN 40 H 43 H Creatinine 1.82 H 2.19 H Estimated Creat Clear 40 33 Estimated GFR 26 L 21 L Est GFR ( Amer) 32 L D 26 L D Glucose 149 H D 112 H D Calcium 8.1 L 8.3 L Preliminary micro results at discharge 02/08/19 19:53 Urine Culture - Preliminary Urine,Clean Catch Gram Negative Rods Gram Negative Rods#2 DS: Diagnosis - Discharge Diagnosis (1) Acute renal failure (ARF) Status: Acute (2) Diarrhea Status: Acute (3) Breast cancer Status: Chronic (4) Obesity Status: Acute (5) CAD (coronary artery disease) Status: Acute (6) CHF (congestive heart failure) Status: Acute (7) CHF, chronic Status: Acute (8) Gout Status: Acute (9) UTI (urinary tract infection), bacterial Status: Acute Discharge Plan - Patient Discharge Instructions ACTIVITY: Continue current activity DIET: continue same diet Patient Instructions: Kidney Failure, Diarrhea, Dehydration, DI for Dehydration -- Adult, Acute Renal Failure, Chronic Renal Failure, DI for Diarrhea and Traveler's Diarrhea -- Adult, DI for Urinary Tract Infection (UTI) - Follow up Plan Disposition: Home, Self-Nursing Home Medications: Home Medications Medication Instructions Recorded Confirmed Type Allopurinol [Allopurinol 100mg 100 mg PO DAILY 02/08/19 02/08/19 History tablet] Aspirin [Aspir 81] 81 mg PO DAILY 02/08/19 02/08/19 History Carvedilol [Carvedilol 3.125mg Tab] 3.125 mg PO BID 02/08/19 02/08/19 History Furosemide [Furosemide 40MG tAB] 40 mg PO DAILY 02/08/19 02/09/19 History Losartan Potassium 50 mg PO DAILY 02/08/19 02/08/19 History Potassium 99 mg PO DAILY 02/08/19 02/08/19 History Simvastatin 40 mg PO DAILY 02/08/19 02/08/19 History Tamoxifen Citrate 20 mg PO DAILY 02/08/19 02/08/19 History Prescriptions/Medication Reconciliation: New Aspirin [Aspirin 81mg EC Tab] 81 mg PO DAILY tablet. Pravastatin Sodium [Pravachol 40mg Tablet] 40 mg PO HS tablet Tamoxifen Citrate [Nolvadex 10mg Tablet] 20 mg PO DAILY tablet Allopurinol [Allopurinol 100mg tablet] 100 mg PO DAILY tablet Continued Simvastatin 40 mg PO DAILY Allopurinol [Allopurinol 100mg tablet] 100 mg PO DAILY Tamoxifen Citrate 20 mg PO DAILY Carvedilol [Carvedilol 3.125mg Tab] 3.125 mg PO BID Aspirin [Aspir 81] 81 mg PO DAILY Discontinued Losartan Potassium 50 mg PO DAILY Furosemide [Furosemide 40MG tAB] 40 mg PO DAILY Potassium 99 mg PO DAILY
[2019-02-10 18:12] LABS: Hepatitis B Core Antibody IgM Negative (Negative); Hepatitis B Surface Antigen Negative (Negative)
[2019-02-10 23:01] LABS: Hepatitis C Antibody <0.1 s/co ratio (0.0-0.9)
== END 2019-02-10 11:45 | disposition home or self-care (01) | DRG 690 ==
LOC: UTC 15:51 → 2ND 15:51 → ER 15:51 → 2ND 21:02 → OBSVTOIN 02-09 10:55 → INTOOBSV 02-09 10:55
PROVIDERS: ADMIT Emergency Medicine; ATTEND Emergency Medicine
CPT/HCPCS: 36415; 80048; 80053; 80074; 81001; 81003; 82150; 83690; 85025; 87086; 87088; 87186; 96365; 96375; 99284; G0378; J2405

== ENCOUNTER 2023-01-28 17:54 | Emergency (ER) | payer MEDICARE, BC, SELFPAY ==
[2023-01-28] VITALS (7 sets, daily range): BP systolic 113–127; BP diastolic 60–71; PULSE 64–72; RESP 14–20; TEMP 35.6–36.6; O2SAT 96–99; BMI 37.9
--- NOTE | 2023-01-28 18:02 | HMH.EDSOB ---
Discharge Plan Disposition Patient Disposition: Home, Self-Care Condition: Fair Chief Complaint: Shortness of Breath/Dyspnea Prescriptions Prescriptions: No Action allopurinol 100 tablet 100 mg PO DAILY buspirone 5 mg Tablet 5 mg PO BID benzonatate 200 mg Capsule 200 mg PO TID PRN (Reason: Cough) alprazolam 0.25 mg Tablet 0.25 mg PO DAILY PRN (Reason: Anxiety) calcitriol 0.25 mcg Capsule 0.25 mcg PO WEEKLY Rx Instructions: Monday Referrals Follow up/Referrals: Provider,Referral, MD [Primary Care Provider] - See instructions Activity Restrictions/Add. Instructions Additional Instructions/Restrictions: Take all medications as prescribed. Follow-up with your director community health nursing within the next few days. Return to the emergency department immediately if you feel worse in any way. I suggest you wear generic compression stockings during the day to help with your swelling in your legs. Your laboratory work-up today did not show any acutely dangerous conditions. There is no evidence of heart attack. You do have congestive heart failure and your kidneys do not function normally. These are no new findings. Clinical Impressions Clinical Impression: CHF (congestive heart failure) Discharge ED Provider: Lexus Bartholomew Resp/SOB HPI General Chief Complaint: Shortness of Breath/Dyspnea Stated Complaint: CHF Retaining fluids SOB Time Seen by Provider: 01/28/23 18:01 Mode of Arrival: Family Vehicle History of Present Illness The patient presents to the emergency department accompanied by her daughter. The patient lives in [place] and came down with her daughter to [facility]. She has a history of congestive heart failure and renal failure but is not on dialysis. She complains of increased lower extremity swelling as well as increasing shortness of breath. 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 The patient denies chest pain, nausea, vomiting, diarrhea MD Complaint: shortness of breath Onset (ago): day(s) (1) Related Data Home Medications Medication Instructions Recorded Confirmed allopurinol 100 mg tablet 100 mg PO DAILY GOUT 02/08/19 01/28/23 alprazolam 0.25 mg tablet 0.25 mg PO DAILY PRN Anxiety 01/28/23 01/28/23 benzonatate 200 mg capsule 200 mg PO TID PRN Cough 01/28/23 01/28/23 buspirone 5 mg tablet 5 mg PO BID Anxiety 01/28/23 01/28/23 calcitriol 0.25 mcg capsule 0.25 mcg PO WEEKLY Supplement 01/28/23 01/28/23 Allergies Allergy/AdvReac Type Severity Reaction Status Date / Time No Known Allergies Allergy Verified 02/08/19 16:19 [facility] Disclaimer: The information contained in this section may have been updated after the patient was seen, as this information can be updated by other users. Medical History (Updated 01/28/23 @ 19:14 by Lexus Bartholomew MD) Bone cancer Breast cancer Cancer of back CHF (congestive heart failure) Hypertension Liver cancer Surgical History (Updated 01/28/23 @ 18:40 by Tereza East RN) H/O section History of hysterectomy Total knee replacement status Family History (Updated 01/28/23 @ 18:40 by Tereza East RN) Other No significant family history Social History (Updated 01/28/23 @ 18:40 by Tereza East RN) Smoking Status: Never smoker alcohol intake: never current occupational status: retired Travel in the last 8 weeks: Inside the [place] housing: house caffeine: No ROS Obtained: Yes All systems reviewed & no additional complaints except as documented Physical Exam General General appearance: alert Head Head exam: atraumatic Eye Eye exam: Present normal appearance, PERRL and EOMI ENT ENT exam: Present normal exam Neck Neck exam: Present normal inspection and full ROM; Absent tenderness or meningismus Chest Chest inspection: Present normal inspection and symmetric chest wall rise; Absent tendern
--- NOTE | 2023-01-28 18:09 | PC.NURSE ---
1802 DR RAYGOZA AT BEDSIDE
--- NOTE | 2023-01-28 18:10 | ECG_ITS ---
APPROVED REPORT Exam: Resting ECG HR:64 bpm ECG Measurements Heart Rate 64 AXES UT 211 P 83 QRSd 95 QRS 3 QT 417 T 6 QTc 426 Conclusion SINUS RHYTHM WITH FIRST DEGREE AV BLOCK LOW QRS VOLTAGE IN PRECORDIAL LEADS [QRS DEFLECTION < 1.0 mV IN CHEST LEADS] NONSPECIFIC T-WAVE ABNORMALITY ABNORMAL ECG UNCONFIRMED REPORT Electronically signed by : Abhijit Elizondo MD 01/29/2023 15:55:27
--- NOTE | 2023-01-28 18:10 | PC.NURSE ---
DAUGHTER REPORTS PT IS DNR CODE STATUS
--- NOTE | 2023-01-28 18:11 | XR_ITS ---
PROCEDURE INFORMATION: Exam: XR Chest Exam date and time: 01/28/2023 6:34 PM Age: 88 years old Clinical indication: Dyspnea TECHNIQUE: Imaging protocol: Radiologic exam of the chest. Views: 1 view. COMPARISON: No relevant prior studies available. FINDINGS: Lungs: Pulmonary vascular congestion. No airspace consolidation. Pleural spaces: Right-sided pleural effusion. Heart/Mediastinum: Cardiomegaly. Vasculature: Mild aortic tortuosity. Bones/joints: Unremarkable. IMPRESSION: 1. Cardiomegaly and pulmonary vascular congestion. 2. Right-sided pleural effusion.
[2023-01-28 18:27] LABS: Basophils % 0.8 % (0.1-2.0); Eosinophils # 0.2 K/mm3 (0.0-0.4); Eosinophils % 3.3 % (0.1-12.0); Hematocrit 34.6 % (37.0-47.0); Hemoglobin 10.5 g/dL (12.2-16.2); Lymphocytes # 1.6 K/mm3 (0.7-4.5); Mean Corpuscular HGB Conc 30.4 g/dL (31.8-35.4); Mean Corpuscular Hemoglobin 36.1 pg (27.0-31.2); Mean Corpuscular Volume 118.6 fl (81-99); Mean Platelet Volume 10.8 fl (7.4-10.4); Monocytes # 0.2 K/mm3 (0.1-1.0); Monocytes % 4.4 % (1.7-9.3); Neutrophils # 3.1 K/mm3 (1.8-7.8); Neutrophils % 60.4 % (37.0-80.0); Platelet Count 155 K/mm3 (142-424); Red Blood Count 2.92 M/mm3 (4.20-5.40); Red Cell Distribution Width 17.6 % (11.5-17.5); White Blood Count 5.1 K/mm3 (4.8-10.8)
[2023-01-28 18:43] LABS: NT Pro Brain Natriuretic Pep. 3340 pg/mL (0-450)
[2023-01-28 18:46] LABS: Troponin I 0.02 ng/ml (0.00-0.034)
--- NOTE | 2023-01-28 18:51 | PC.NURSE ---
DR RAYGOZA AT BEDSIDE TO UPDATE PT AND FAMILY
[2023-01-28 19:33] LABS: Chloride 109 mmol/L (98-107); Sodium 141 mmol/L (136-145)
[2023-01-28 19:36] LABS: Blood Urea Nitrogen 64 mg/dl (7-17); Calcium 8.6 mg/dl (8.4-10.2); Carbon Dioxide 25 mmol/L (22.0-30.0); Creatinine Clearance Estimated 26 mL/min (50-200); Estimated Glomerular Filt Rate 19 ml/min (>60); GFR (African American) 23 ML/MIN (>60); Glucose 92 mg/dl (74-100)
== END 2023-01-28 20:02 | disposition home or self-care (01) ==
PROVIDERS: Emergency Provider Emergency Medicine
DX: I50.9 Heart failure, unspecified (principal); R06.02 Shortness of breath; R22.40 Localized swelling, mass and lump, unspecified lower limb
CPT/HCPCS: 71045; 80048; 83880; 84484; 85025; 93005; 96374; 99285